=== PATIENT | female | born 1995 | race Caucasian/White ===

== ENCOUNTER 2017-07-12 06:31 | Emergency (ER) | payer MEDICAID ==
[~2017-07-12] VITALS: Ht 167.6 cm; Wt 68.2 kg
[2017-07-12 07:04] VITALS: BP 126/80
[2017-07-12] MEDS ORDERED: IBUPROFEN 600 MG TABLET PO ONE (07:15)
[2017-07-12] MEDS ORDERED: AMPICILLIN SODIUM/SULBACTAM NA 1.5 GM in SODIUM CHLORIDE 0.9% 50 ML IV ONE (07:15)
== END 2017-07-12 08:34 | disposition home or self-care (01) ==
LOC: EMS 06:32
DX: K04.7 Periapical abscess without sinus (principal); K02.9 Dental caries, unspecified
CPT/HCPCS: 96374; 99284; J0295; J7050

== ENCOUNTER 2017-07-14 15:05 | Emergency (ER) | payer MEDICAID ==
[~2017-07-14] VITALS: Ht 167.6 cm; Wt 67.7 kg
[2017-07-14 15:06] VITALS: BP 124/67
[2017-07-14] MEDS ORDERED: KETOROLAC TROMETHAMINE 10 MG TABLET PO ONE (16:00)
== END 2017-07-14 15:52 | disposition home or self-care (01) ==
LOC: EMS 15:06
DX: K04.7 Periapical abscess without sinus (principal)
CPT/HCPCS: 99281

== ENCOUNTER 2018-01-20 10:47 | Emergency (ER) | payer MEDICAID ==
[~2018-01-20] VITALS: Ht 172.7 cm; Wt 65.9 kg
[2018-01-20 11:53] VITALS: BP 113/69
== END 2018-01-20 11:56 | disposition home or self-care (01) ==
LOC: EMS 10:48
DX: L05.91 Pilonidal cyst without abscess (principal)
CPT/HCPCS: 99283

== ENCOUNTER 2020-02-12 15:02 | Emergency (ER) | payer MEDICAID, OTHER ==
[~2020-02-12] VITALS: Ht 172.7 cm; Wt 72.7 kg
[2020-02-12 15:03] VITALS: BP 121/70
[2020-02-12] MEDS ORDERED: DiphenhydrAMINE HCL 25 MG CAPSULE PO ONE (15:45)
== END 2020-02-12 16:12 | disposition home or self-care (01) ==
LOC: EMS 15:05
DX: L25.9 Unspecified contact dermatitis, unspecified cause (principal)

== ENCOUNTER 2022-01-23 19:34 | Emergency (ER) | payer BC, OTHER ==
[~2022-01-23] VITALS: Ht 167.6 cm; Wt 72.7 kg
[2022-01-23] MEDS ORDERED: IBUPROFEN 600 MG TABLET PO ONE (20:15)
[2022-01-23] MEDS ORDERED: PERTUSS(ACELL),DIPH,TET VAC/PF 0.5 ML SYRINGE IM. ONE (20:30)
[2022-01-23 21:25] VITALS: BP 118/71
== END 2022-01-23 21:27 | disposition home or self-care (01) ==
LOC: EMS 19:39
DX: T63.511A Toxic effect of contact with stingray, accidental (unintentional), initial encounter (principal); Y92.832 Beach as the place of occurrence of the external cause
CPT/HCPCS: 90471; 90715; 99283

== ENCOUNTER 2022-02-03 10:29 | Emergency (ER) | payer BC, OTHER ==
[~2022-02-03] VITALS: Ht 167.6 cm; Wt 68.2 kg
[2022-02-03 10:30] VITALS: BP 139/104
[2022-02-03] MEDS ORDERED: CEPH-558 PO (10:43)
[2022-02-03] MEDS ORDERED: LEVO-72 PO (10:43)
== END 2022-02-03 10:53 | disposition home or self-care (01) ==
LOC: EMS 10:30
DX: T63.511A Toxic effect of contact with stingray, accidental (unintentional), initial encounter (principal); M79.672 Pain in left foot; M79.89 Other specified soft tissue disorders; Y92.89 Other specified places as the place of occurrence of the external cause
CPT/HCPCS: 99283; Z7502

== ENCOUNTER 2023-11-06 14:22 | Emergency (ER) | payer BC, MEDICAID, OTHER ==
[~2023-11-06] VITALS: Ht 167.6 cm; Wt 61.3 kg
[~2023-11-06 14:22] MED LIST: CEPH-558 PO; LEVO-72 PO
[2023-11-06 14:43] VITALS: BP 126/63; PULSE 93; RESP 18; TEMP 99.3
[2023-11-06 14:50] LABS: COVID AG,FIA SOURCE NASAL SWAB
[2023-11-06 15:19] LABS: SARS-COV2 (COVID) ANTIGEN,FIA Negative (Negative)
[2023-11-06 15:25] LABS: INFLUENZA TYPE A NEGATIVE FOR TYPE A (NEGATIVE); INFLUENZA TYPE B NEGATIVE FOR TYPE B (NEGATIVE)
[2023-11-06] MEDS: ONDANSETRON HCL 4 MG TABLET PO ONE (17:48)
[2023-11-06] MEDS: ACETAMINOPHEN 500 MG TABLET PO ONE (17:48)
[2023-11-06 18:19] LABS: BASOPHILS % (AUTO) 0.8 % (0.0-2.0); EOSINOPHILS % (AUTO) 0.3 % (1.0-6.0); HEMOGLOBIN 14.9 g/dL (12.0-16.0); LYMPHOCYTES % (AUTO) 31.3 % (22.0-44.0); MEAN CORPUSCULAR HEMOGLOBIN 32.9 pg (26.0-34.0); MEAN CORPUSCULAR HGB CONC 33.1 G/dL (31.0-37.0); MEAN CORPUSCULAR VOLUME 99 fL (80-100); MONOCYTES # (AUTO) 0.5 K/uL (0.1-1.0); MONOCYTES % (AUTO) 5.3 % (2.0-9.0); NEUTROPHILS # (AUTO) 6.1 K/uL (1.8-7.7); NEUTROPHILS % (AUTO) 62.3 % (40.0-70.0); PLATELET COUNT (AUTO) 264 K/uL (150-450); RED BLOOD CELL COUNT(AUTO) 4.53 MIL/uL (4.00-5.20); RED CELL DISTRIBUTION WIDTH 13.6 % (11.5-14.5); WHITE BLOOD COUNT (AUTO) 9.7 K/uL (4.5-11.0)
[2023-11-06 18:33] LABS: ANION GAP 8 mmol/L (8-16); CALCIUM, TOTAL 8.7 mg/dL (8.8-10.5); CARBON DIOXIDE 27 mmol/L (22-29); CHLORIDE 101 mmol/L (98-107); GLOMERULAR FILTR. RATE CALC > 60 mL/min (>60); GLUCOSE,RANDOM 100 mg/dL (70-110); POTASSIUM 4.5 mmol/L (3.5-5.1); SODIUM SERUM 136 mmol/L (136-145); UREA NITROGEN, BLOOD 11 mg/dL (7-18)
[2023-11-06 18:40] LABS: ALANINE AMINOTRANSFERASE 20 U/L (12-78); ALBUMIN 4.2 g/dL (3.4-5.0); ALKALINE PHOSPHATASE 62 U/L (46-116); ASPARTATE AMINOTRANSFERASE 24 U/L (15-37); BILIRUBIN,TOTAL 0.5 mg/dL (0.1-1.0); TOTAL PROTEIN, SERUM 8.4 g/dL (6.4-8.2)
[2023-11-06] MEDS ORDERED: ONDA-104 PO (18:53)
[2023-11-06] MEDS ORDERED: ACET-2247 PO (18:53)
== END 2023-11-06 22:22 | disposition home or self-care (01) ==
LOC: EMS 14:41
DX: B34.9 Viral infection, unspecified (principal); R05.9 Cough, unspecified; M79.10 Myalgia, unspecified site; R11.0 Nausea; Z20.822 Contact with and (suspected) exposure to COVID-19
CPT/HCPCS: 99283; 87426; 80053; 84703; 85025; 87804; 36415; Q0162